=== PATIENT | male | born 1990 | race Caucasian/White ===

== ENCOUNTER 2022-12-01 14:05 | Outpatient (REF) | payer OTHER, SELFPAY ==
--- NOTE | ~2022-12-01 | XR_ITS ---
EXAMINATION: XR HAND, RIGHT CLINICAL INFORMATION: First and fourth digit pain; question fracture. COMPARISON: None available. TECHNIQUE: PA, lateral, and oblique views of the right hand. FINDINGS: The bones and soft tissues are normal. No fracture. Alignment is anatomic. Joint spaces are maintained. No erosions or soft tissue calcifications. XR/XR hand RT min 3V IMPRESSION: Normal right hand.
[2022-12-01 14:20] LABS: MANUAL DIFF FLAG NO
[2022-12-01 14:55] LABS: Basophils Percent Auto 0.3 % (0-2); Eosinophils Absolute Auto 0.1 X10*3/uL (0.0-0.4); Eosinophils Percent Auto 1.1 % (0-4); Hematocrit 47.7 % (42.0-52.0); Hemoglobin 15.4 g/dl (14.0-18.0); Imm Gran Abs Auto 0.04 X10*3/uL (0.00-0.03); Imm Gran Pct Auto 0.4 % (0.0-0.4); Lymphocytes Absolute Auto 2.4 X10*3/uL (1.2-4.9); Lymphocytes Percent Auto 23.2 % (20-40); Mean Corpuscular HGB Conc 32.3 g/dl (31.0-36.0); Mean Corpuscular Hemoglobin 29.2 pg (27.0-33.0); Mean Corpuscular Volume 90.3 fL (80.0-98.0); Monocytes Absolute Auto 0.9 X10*3/uL (0.1-1.2); Neutrophils Absolute Auto 6.8 x10*3/uL (2.0-8.3); Platelet Count 313 X10*3/uL (160-400); Red Blood Count 5.28 X10*6/uL (4.60-5.80); Red Cell Distribution Width 12.2 % (11.0-16.0); White Blood Count 10.3 X10*3/uL (4.8-10.8)
[2022-12-01 15:39] LABS: Alanine Aminotransferase 44 U/L (0-40); Albumin Level 4.5 g/dL (3.5-5.0); Alkaline Phosphatase 98 U/L (39-117); Anion Gap 15 (12-20); Aspartate Amino Transferase 20 U/L (5-37); Bilirubin Total 0.3 mg/dL (0.0-1.0); Blood Urea Nitrogen 17 mg/dL (9-16); Calcium 9.8 mg/dL (8.4-10.2); Carbon Dioxide 25 mmol/L (22-29); Chloride 107 mmol/L (96-108); Cholesterol 169 mg/dL; Estimated Glomerular Filt Rate > 60; Glucose Random 96 mg/dL (60-115); HDL Cholesterol 50 mg/dL; LDL Cholesterol Calculated 110 mg/dl; Potassium 5.2 mmol/L (3.3-5.1); Sodium 142 mmol/L (135-145); Total Protein 7.6 g/dL (6.5-8.0); Triglycerides 45 mg/dL
== END 2022-12-01 14:06 | disposition home or self-care (01) ==
LOC: HO.LAB 14:05
PROVIDERS: PCP Internal Medicine; Visit Provider Internal Medicine
DX: Z00.00 Encounter for general adult medical examination without abnormal findings (principal); B35.4 Tinea corporis; I10 Essential (primary) hypertension; J45.909 Unspecified asthma, uncomplicated; M76.62 Achilles tendinitis, left leg; M79.641 Pain in right hand; R63.5 Abnormal weight gain
CPT/HCPCS: 36415; 73130; 80053; 80061; 84443; 85025

== ENCOUNTER 2024-05-17 15:56 | Outpatient (REF) | payer OTHER, SELFPAY ==
[2024-05-17 16:15] LABS: MANUAL DIFF FLAG NO
[2024-05-17 17:11] LABS: Basophils Percent Auto 0.3 % (0-2); Eosinophils Absolute Auto 0.2 X10*3/uL (0.0-0.4); Hematocrit 45.9 % (42.0-52.0); Hemoglobin 15.2 g/dl (14.0-18.0); Imm Gran Abs Auto 0.02 X10*3/uL (0.00-0.03); Imm Gran Pct Auto 0.3 % (0.0-0.4); Lymphocytes Absolute Auto 2.3 X10*3/uL (1.2-4.9); Mean Corpuscular HGB Conc 33.1 g/dl (31.0-36.0); Mean Corpuscular Hemoglobin 29.1 pg (27.0-33.0); Mean Corpuscular Volume 87.8 fL (80.0-98.0); Mean Platelet Volume 9.2 fL (9.4-12.4); Monocytes Absolute Auto 0.6 X10*3/uL (0.1-1.2); Monocytes Percent Auto 8.6 % (2-11); Neutrophils Absolute Auto 4.2 x10*3/uL (2.0-8.3); Neutrophils Percent Auto 56.8 % (45-73); Platelet Count 346 X10*3/uL (160-400); Red Blood Count 5.23 X10*6/uL (4.60-5.80); Red Cell Distribution Width 11.8 % (11.0-16.0); White Blood Count 7.3 X10*3/uL (4.8-10.8)
[2024-05-17 17:49] LABS: Alanine Aminotransferase 107 U/L (0-40); Albumin Level 4.5 g/dL (3.5-5.0); Alkaline Phosphatase 97 U/L (39-117); Anion Gap 7 (12-20); Aspartate Amino Transferase 50 U/L (5-37); Bilirubin Total 0.4 mg/dL (0.0-1.0); Blood Urea Nitrogen 15 mg/dL (9-16); Calcium 9.7 mg/dL (8.4-10.2); Carbon Dioxide 28 mmol/L (22-29); Chloride 109 mmol/L (96-108); Cholesterol 161 mg/dL (<200); Estimated Glomerular Filt Rate > 60; Glucose Random 100 mg/dL (60-115); HDL Cholesterol 37 mg/dL (>40); LDL Cholesterol Calculated 110 mg/dL (<100); Potassium 4.3 mmol/L (3.3-5.1); Sodium 140 mmol/L (135-145); Total Protein 7.9 g/dL (6.5-8.0); Triglycerides 74 mg/dL (<150)
[2024-05-17 18:06] LABS: Thyroid Stimulating Hormone 0.73 uIU/mL (0.32-4.0)
[2024-05-18 05:42] LABS: Estimated Average Glucose 126 mg/dL; Hemoglobin A1C 164.8663 umol/L; Total Hemoglobin (HGBA1C) 3915.1361 umol/L
== END 2024-05-17 15:57 | disposition home or self-care (01) ==
LOC: HO.LAB 15:56
PROVIDERS: PCP Internal Medicine; Visit Provider Internal Medicine
DX: Z00.01 Encounter for general adult medical examination with abnormal findings (principal); F17.201 Nicotine dependence, unspecified, in remission; I10 Essential (primary) hypertension; J45.20 Mild intermittent asthma, uncomplicated; L30.0 Nummular dermatitis; R63.5 Abnormal weight gain
CPT/HCPCS: 36415; 80053; 80061; 83036; 84443; 85025